=== PATIENT | female | born 1945 | race Caucasian/White ===

== ENCOUNTER 2019-12-21 11:29 | Outpatient (CLI) | payer MEDICARE ==
--- NOTE | 2019-12-21 16:19 | XRAY Report ---
PROCEDURE: Knee 3 View BILAT INDICATIONS: BILATERAL KNEE PAIN TECHNIQUE: 3 views of the bilateral knee(s) were acquired. COMPARISON: None. FINDINGS: Bones: No fractures or dislocations. No suspicious bony lesions. There is moderate to severe bilat eral medial, left greater than right compartment narrowing. Moderate bilateral medial compartment k[place] rowing is present. Small periarticular osteophytes and subchondral sclerosis are present, left greate r than right in the medial compartment. No definitive erosions are identified. Minimal appearance of chondrocalcinosis is present. Soft tissues: Minimal bilateral effusions. No suspicious soft tissue calcifications. IMPRESSION: Moderate to severe medial and moderate patellofemoral compartment narrowing suggestive o steoarthritis as above. Reviewed by: Denisha Lee MD on 12/21/2019 4:17 PM PST Approved by: Denisha Lee MD on 12/21/2019 4:17 PM [facility] Station ID: [id number]
== END 2019-12-21 11:30 | disposition home or self-care (01) ==
LOC: DI 11:29
PROVIDERS: ATTEND Family Medicine
DX: M25.561 Pain in right knee (principal); M25.562 Pain in left knee; G89.29 Other chronic pain

== ENCOUNTER 2022-04-30 10:51 | Outpatient (CLI) | payer MEDICARE ==
[2022-04-30 11:22] LABS: BASOPHILS # (AUTO) 0.1 10^3/uL (0.0-0.1); BASOPHILS % (AUTO) 0.4 %; EOSINOPHILS # (AUTO) 0.2 10^3/uL (0.0-0.7); EOSINOPHILS % (AUTO) 1.1 %; HCT - HEMATOCRIT 39.5 % (37.0-47.0); HGB - HEMOGLOBIN 12.1 g/dL (12.0-16.0); LYMPHOCYTES # (AUTO) 4.8 10^3/uL (1.5-3.5); LYMPHOCYTES % (AUTO) 30.1 %; MEAN CORPUSCULAR HEMOGLOBIN 27.7 pg (27.0-31.0); MEAN CORPUSCULAR HGB CONC 30.6 g/dL (32.0-36.0); MEAN CORPUSCULAR VOLUME 90.4 fL (81.0-99.0); MEAN PLATELET VOLUME 8.9 fL (7.9-10.8); MONOCYTES # (AUTO) 1.4 10^3/uL (0.0-1.0); MONOCYTES % (AUTO) 8.8 %; NEUTROPHILS # (AUTO) 9.5 10^3/uL (1.5-6.6); NEUTROPHILS % (AUTO) 59.2 %; PLT - PLATELET COUNT 480 10^3/uL (130-450); RED BLOOD COUNT 4.37 10^6/uL (4.20-5.40); WHITE BLOOD COUNT 16.1 x10^3/uL (4.8-10.8)
[2022-04-30 11:53] LABS: THYROID STIMULATING HORMONE 3.31 uIU/mL (0.34-5.60)
--- NOTE | 2022-04-30 12:53 | XRAY Report ---
PROCEDURE: Cervical Spine Complete INDICATIONS: NECK PAIN TECHNIQUE: 5 views of the cervical spine acquired. COMPARISON: None. FINDINGS: Bones: No fractures or dislocations to the C7 level. Moderate degenerative change in the cervical sp ine. There is uncovertebral joint hypertrophy. Disc space height loss. Bony neural foraminal narrowin g bilaterally most pronounced at C3-C4. Soft tissues: No prevertebral soft tissue swelling. IMPRESSION: Moderate degenerative change in the cervical spine with multilevel neural foraminal narrowing. MRI could be considered for further evaluation. Reviewed by: Ari Gamez MD on 04/30/2022 12:52 PM PDT Approved by: Ari Gamez MD on 04/30/2022 12:52 PM PDT Station ID: [id number]
--- NOTE | 2022-04-30 12:57 | XRAY Report ---
PROCEDURE: Wrist 4 View LT INDICATIONS: WRIST PAIN TECHNIQUE: 4 views of the wrist were acquired. COMPARISON: None FINDINGS: Bones: Questionable bony fragment at the distal radial ulnar joint seen only on one projection. No s uspicious bony lesions. Bones are osteopenic. Skin marker is in this region. Scaphoid view: Intact. Soft tissues: No suspicious soft tissue calcifications. IMPRESSION: Questionable bony fragment at the DRUJ. Bones are osteopenic. CT or MRI would be helpful for further evaluation. Reviewed by: Ari Gamez MD on 04/30/2022 12:56 PM PDT Approved by: Ari Gamez MD on 04/30/2022 12:56 PM PDT Station ID: [id number]
--- NOTE | 2022-04-30 13:04 | XRAY Report ---
PROCEDURE: Knee 3 View BILAT INDICATIONS: KNEE PAIN TECHNIQUE: 3 views of the each knee(s) were acquired. COMPARISON: None. FINDINGS: Bones: No fractures or dislocations. Joint space narrowing at most pronounced in the medial compartm ents. Tricompartmental osteophytosis. No suspicious bony lesions. Soft tissues: Small bilateral joint effusions. No suspicious soft tissue calcifications. 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 Reviewed by: Ari Gamez MD on 04/30/2022 1:02 PM PDT Approved by: Ari Gamez MD on 04/30/2022 1:02 PM PDT Station ID: [id number]
== END 2022-04-30 10:52 | disposition home or self-care (01) ==
LOC: DI 10:51
PROVIDERS: ATTEND Physician Assistant Medical
DX: M47.812 Spondylosis without myelopathy or radiculopathy, cervical region (principal); M85.88 Other specified disorders of bone density and structure, other site; M17.0 Bilateral primary osteoarthritis of knee; R53.83 Other fatigue
CPT/HCPCS: 36415; 84443; 85025